=== PATIENT | female | born 1975 | race Caucasian/White ===

== ENCOUNTER 2017-04-24 11:40 | Day surgery (SDC) | payer OTHER ==
[~2017-04-24] VITALS: Ht 172.7 cm; Wt 107.5 kg
[~2017-04-24 11:40] MED LIST: ENDOCET 5-3251 EACH PO; EXFORGE 10/31 TABLET PO; HYDROCHLOROTHIA25 MG PO; KEFLEX500 MG PO; LASIX40 MG PO; MOTRIN800 MG PO; SYNTHROID50 MCG PO; TENORMIN100 MG PO; TYLENOL EXTRA500 MG PO
[2017-04-24 12:20] LABS: BASOPHIL COUNT 0.1 K/uL (0-0.1); EOSINOPHIL (%) 2.3 % (0-5); EOSINOPHIL COUNT 0.3 K/uL (0-0.3); HEMATOCRIT 40.2 % (36.0-46.0); IMMATURE GRANULOCYTE (%) 0.3 % (0.0-0.7); INSTRUMENT ABS NEUTROPHIL CT 6.4 K/uL; LYMPHOCYTE COUNT 3.4 K/uL (1.0-2.8); MCH 27.4 PG (29.0-34.0); MCHC 33.3 G/DL (30.0-36.0); MCV 82.2 FL (83-99); MEAN PLAT.VOLUME 9.2 uM^3 (9.5-12.4); MONOCYTE (%) 6.8 % (3-12); MONOCYTE COUNT 0.7 K/uL (0-0.8); NEUTROPHIL COUNT 6.4 K/uL (1.8-6.4); PLATELET COUNT 427 K/uL (156-360); RBC DIS.WIDTH-CV 13.2 % (11.8-14.6); RED BLOOD COUNT 4.89 M/uL (3.80-5.20); WHITE BLOOD COUNT 10.8 K/uL (4.1-10.2)
[2017-04-24 12:27] VITALS: BP 117/71
[2017-04-24 12:41] LABS: PROTHROMBIN TIME 10.6 SEC (10.2-12.9)
[2017-04-24 12:42] LABS: CHLORIDE 101 mEq/L (99-109); POTASSIUM 3.1 mEq/L (3.7-5.4); SODIUM 139 mEq/L (136-147)
[2017-04-24 12:44] LABS: GLUCOSE 89 mg/dL (70-99)
[2017-04-24 12:45] LABS: ANION GAP 10 MEQ/L (2-14)
[2017-04-24 12:46] LABS: TOTAL BILIRUBIN 0.5 mg/dL (0.0-1.0)
[2017-04-24 12:48] LABS: ALKALINE PHOSPHATASE 53 IU/L (3-129); GFR ESTIMATE (CALCULATED) > 59 mL/min/
[2017-04-24 12:49] LABS: UREA NITROGEN (BUN) 11 mg/dL (9-23)
[2017-04-24 12:57] LABS: QUANTITATIVE HCG < 4.0 MIU/ML
[2017-04-24] MEDS ORDERED: TRAMADOL HCL50 MG PO (17:30)
[2017-04-24 17:50] VITALS: BP 142/73
[2017-04-24 18:30] VITALS: BP 134/87
== END 2017-04-24 18:46 | disposition home or self-care (01) ==
LOC: SDC 11:40
PROVIDERS: Thoracic Surgery (Cardiothoracic Vascular Surgery)
PROC: 0HB6XZZ Excision of Back Skin, External Approach (ICD-10-PCS; principal; 2017-04-24)
DX: L72.0 Epidermal cyst (principal); L02.212 Cutaneous abscess of back [any part, except buttock and flank]
CPT/HCPCS: 80053; 84702; 85025; 85610; 87070; 87075; 87076; 87186; 87205; 88304; 93005; J0690; J2250; J3010

== ENCOUNTER 2017-04-25 12:22 | Emergency (ER) | payer OTHER ==
[~2017-04-25] VITALS: Ht 157.5 cm; Wt 108.1 kg
[~2017-04-25 12:22] MED LIST changes: +TRAMADOL HCL50 MG PO
[2017-04-25 12:30] VITALS: BP 133/89
== END 2017-04-25 14:00 | disposition home or self-care (01) ==
LOC: EME 12:22
DX: Z48.01 Encounter for change or removal of surgical wound dressing (principal); L02.212 Cutaneous abscess of back [any part, except buttock and flank]; I10 Essential (primary) hypertension
CPT/HCPCS: 99281; 99283